=== PATIENT | female | born 1965 | race Caucasian/White ===

== ENCOUNTER → 2021-10-18 | Outpatient (CLI) | payer MEDICARE, BC ==
[2021-10-18 11:59] LABS: HEMOGLOBIN 13.2 gm/dl (12.3-15.3); RED BLOOD COUNT 4.09 M/UL (4.00-5.10); WHITE BLOOD COUNT 5.7 K/UL (4.5-11.0)
[2021-10-18 12:23] LABS: BUN/CREATININE RATIO 20 (0-10)
[2021-10-19 07:33] LABS: COMPLEMENT C3, SERUM 132 mg/dL (82-167); RHEUMATOID ARTHRITIS FACTOR <10.0 IU/mL (<14.0)
[2021-10-19 09:15] LABS: COMPLEMENT C4, SERUM 24 mg/dL (12-38)
== END ==
LOC: LAB 10:48
PROVIDERS: Nurse Practitioner Family
DX: D89.9 Disorder involving the immune mechanism, unspecified (principal); M25.50 Pain in unspecified joint; R76.8 Other specified abnormal immunological findings in serum; M79.10 Myalgia, unspecified site
CPT/HCPCS: 36415; 80053; 81001; 82550; 82570; 82728; 83520; 84156; 84439; 84443; 85025; 85652; 86140; 86160; 86162; 86200; 86431